=== PATIENT | male | born 1960 | race Caucasian/White ===

== ENCOUNTER 2019-01-14 05:13 | Emergency (ER) | payer BC, OTHER ==
[2019-01-14 05:23] VITALS: BP 228/162
[2019-01-14] MEDS ORDERED: HYDROmorphone 1 MG/ML Syringe IVPUSH ONE ×2 (05:32→06:22)
[2019-01-14] MEDS ORDERED: Sodium Chloride 0.9% 10 ML Syringe FLUSH PRN (05:32)
[2019-01-14] MEDS ORDERED: Ondansetron 4 MG/2 ML SDV IVPUSH ONE (05:32)
--- NOTE | 2019-01-14 05:44 | EDM.PDOC ---
ED HPI GENERAL MEDICAL PROBLEM - General Chief Complaint: Abdominal Pain Stated Complaint: PAIN IN BACK AND STOMACH Time Seen by Provider: 01/14/19 05:28 Source of Information: Reports: Patient, RN Notes Reviewed - History of Present Illness INITIAL COMMENTS - FREE TEXT/NARRATIVE: 58-year-old male comes in with left flank and back discomfort radiating to left groin. He states this started about 4 hours ago awakening him out of a " sleep". Pain is sharp, severe, unrelenting with some nausea vomiting as well. Pain does not radiate to the right abdomen. He's not had anything like this before. He was feeling fine last evening. Left Abdomen Pain Score (Numeric/FACES): 10 - Related Data Allergies Allergy/AdvReac Type Severity Reaction Status Date / Time No Known Allergies Allergy Verified 01/14/19 05:32 Home Meds: Home Meds oxyCODONE HCl/Acetaminophen [Percocet 5-325 mg Tablet] 1 each PO Q6HR PRN #14 tablet 01/14/19 [Rx] Past Medical History Cardiovascular History: Reports: Hypertension - Past Surgical History Male Surgical History: Reports: Other (See Below) Social & Family History - Caffeine Use Caffeine Use: Reports: Coffee, Soda ED ROS GENERAL - Review of Systems Review Of Systems: See Below Constitutional: Reports: Diaphoresis. Denies: Fever, Chills HEENT: Reports: No Symptoms Respiratory: Denies: Shortness of Breath Cardiovascular: Denies: Chest Pain GI/Abdominal: Reports: Abdominal Pain, Nausea, Vomiting : Denies: Hematuria Musculoskeletal: Reports: Back Pain Skin: Reports: No Symptoms Neurological: Denies: Numbness, Tingling ED EXAM, RENAL/ - Physical Exam Exam: See Below General Appearance: Alert, Anxious, Severe Distress Eye Exam: Bilateral Eye: PERRL Throat/Mouth: Normal Inspection, Normal Oropharynx Head: Atraumatic Neck: Supple Respiratory/Chest: No Respiratory Distress, Lungs Clear, Normal Breath Sounds Cardiovascular: Regular Rate, Rhythm GI/Abdominal: Tender (mild tenderness LLQ) Back Exam: CVA Tenderness (L) Extremities: Normal Inspection. No: Pedal Edema, Leg Pain Neurological: Alert, Oriented, No Motor/Sensory Deficits Skin Exam: Warm, Dry, Normal Color Course - Vital Signs Last Recorded V/S: Last Vital Signs Temp 97.5 F 01/14/19 05:20 Pulse 78 01/14/19 05:20 Resp 18 01/14/19 05:20 BP 228/162 H 01/14/19 05:20 Pulse Ox 99 01/14/19 05:20 - Orders/Labs/Meds Orders: Active Orders 24 hr Category Date Time Status Peripheral IV Care [RC] . DIRECTED Care 01/14/19 05:32 Active Sodium Chloride 0.9% [Saline Flush] Med 01/14/19 05:32 Active 10 ml FLUSH ASDIRECTED PRN Peripheral IV Insertion Adult [OM.PC] Stat Oth 01/14/19 05:31 Ordered Medication Orders Sodium Chloride (Saline Flush) 10 ml FLUSH ASDIRECTED PRN PRN Reason: Keep Vein Open Last Admin: 01/14/19 05:39 Dose: 10 ml Labs: Laboratory Tests 01/14/19 01/14/19 01/14/19 Range/Units 05:31 05:31 05:57 WBC 15.01 H (4.23-9.07) K/mm3 RBC 6.06 (4.63-6.08) M/mm3 Hgb 16.9 (13.7-17.5) gm/L Hct 49.4 (40.1-51.0) % MCV 81.5 (79.0-92.2) fl MCH 27.9 (25.7-32.2) pg MCHC 34.2 (32.2-35.5) g/dl RDW Std Deviation 39.8 (35.1-43.9) fL Plt Count 323 (163-337) K/mm3 MPV 9.6 (9.4-12.3) fl Neut % (Auto) 81.4 H (34.0-67.9) % Lymph % (Auto) 12.4 L (21.8-53.1) % [place] % (Auto) 5.3 (5.3-12.2) % Eos % (Auto) 0.3 L (0.8-7.0) Baso % (Auto) 0.1 (0.1-1.2) % Neut # (Auto) 12.21 H (1.78-5.38) K/mm3 Lymph # (Auto) 1.86 (1.32-3.57) K/mm3 [place] # (Auto) 0.79 (0.30-0.82) K/mm3 Eos # (Auto) 0.05 (0.04-0.54) K/mm3 Baso # (Auto) 0.02 (0.01-0.08) K/mm3 Manual Slide Review Normal smear Sodium 141 (136-145) mEq/L Potassium 3.8 (3.5-5.1) mEq/L Chloride 103 (98-107) mEq/L Carbon Dioxide 28 (21-32) mEq/L Anion Gap 13.8 (5-15) BUN 11 (7-18) mg/dL Creatinine 1.2 (0.7-1.3) mg/dL Est Cr Clr Drug Dosing 67.92 mL/min Estimated GFR (MDRD) > 60 (>60) mL/min BUN/Creatinine Ratio 9.2 L (14-18) Glucose 149 H (74-106) mg/dL Calcium 10.2 H (8.5-10.1) mg/dL Total Bilirubin 0.8 (0.2-1.0) mg/dL AST 25 (15-37) U/L ALT 44 (16-63) U/L Alkaline Phosphatase 69 (46-116) U/L Total Protein 8.0 (6.4-8.2) g/dl Albumin 4.2 (3.4-5.0) g/dl Globulin 3.8 gm/dL Albumin/Globulin Ratio 1.1 (1-2) Urine Color Yellow (Yellow) Urine Appearance Clear (Clear) Urine pH 7.5 (5.0-8.0) Ur Specific [place] 1.025 (1.005-1.030) Urine Protein Trace H (Negative) Urine Glucose (UA) Negative (Negative) Urine Ketones Negative (Negative) Urine Occult Blood 3+ H (Negative) Urine Nitrite Negative (Negative) Urine Bilirubin Negative (Negative) Urine Urobilinogen 0.2 (0.2-1.0) Ur Leukocyte Esterase Negative (Negative) Meds: Medications Generic Name Dose Route Start Last Admin Trade Name Freq PRN Reason Stop Dose Admin Sodium Chloride 10 ml 01/14/19 05:32 01/14/19 05:39 Saline Flush FLUSH 10 ml ASDIRECTED PRN Administration Keep Vein Open Discontinued Medications Generic Name Dose Route Start Last Admin Trade Name Freq PRN Reason Stop Dose Admin Hydromorphone HCl 1 mg 01/14/19 05:32 01/14/19 05:38 Dilaudid IVPUSH 01/14/19 05:33 1 mg ONETIME ONE Administration Hydromorphone HCl 1 mg 01/14/19 06:22 01/14/19 06:38 Dilaudid IVPUSH 01/14/19 06:23 1 mg ONETIME ONE Administration Labetalol HCl 20 mg 01/14/19 06:11 01/14/19 06:23 Normodyne IVPUSH 01/14/19 06:12 4 ml ONETIME ONE Administration Protocol Ondansetron HCl 4 mg 01/14/19 05:32 01/14/19 05:37 Zofran IVPUSH 01/14/19 05:33 4 mg ONETIME ONE Administration Tamsulosin HCl 0.4 mg 01/14/19 06:23 01/14/19 06:38 Flomax PO 01/14/19 06:24 0.4 mg ONETIME ONE Administration - Re-Assessments/Exams Free Text/Narrative Re-Assessment/Exam: 01/14/19 06:08 CT abdomen pelvis without contrast does show a 4 mm stone distal left ureter with hydronephrosis and perinephric stranding. See radiology report for details. Given 1 mg Dilaudid IV, Zofran IV. Blood pressure was tremendously high on arrival. He has been on blood pressure medicine in the past but states "I have not seen a doctor in 2 years" so obviously off meds at this time. 01/14/19 06:10. White blood count mildly elevated, chemistries are fine, BUN and creatinine are okay. 06:50. Have given 1 dose labetalol 20 mg IV and with that blood pressure has improved to 180/123. He states his blood pressure "always does run high" and he has been off meds for quite a long time. His pain is much better after 1.5 mg Dilaudid IV. He states he is "ready to go home". We also have given a dose of Flomax. Departure - Departure Time of Disposition: 06:56 Disposition: Home, Self-Care 01 Condition: Fair Clinical Impression: Kidney stone on left side, Renal colic on left side Hypertension Qualifiers: Hypertension type: essential hypertension Qualified Code(s): I10 - Essential ( primary) hypertension - Discharge Information Prescriptions: oxyCODONE HCl/Acetaminophen [Percocet 5-325 mg Tablet] 1 each PO Q6HR PRN #14 tablet PRN Reason: Pain Referrals: PCP,None [Primary Care Provider] - Forms: ED Department Discharge Additional Instructions: Strain urine to watch for stone, you've been given sedative medication while here in the ED, do not drive or operate equipment of any kind today. Drink plenty of water to maintain hydration. You may take Percocet every 6-8 hours if needed for further severe discomfort. See one of our clinic providers if you have not past the stone by tomorrow noon, call [phone] for appointment. They will help get you referred to see a Urologist. Your blood pressure is very high. You should be working with a clinic provider to have that monitored and treated. - My Orders Last 24 Hours: My Active Orders 01/14/19 05:31 Peripheral IV Insertion Adult [OM.PC] Stat 01/14/19 05:32 Peripheral IV Care [RC] . DIRECTED Sodium Chloride 0.9% [Saline Flush] 10 ml FLUSH ASDIRECTED PRN - Assessment/Plan Last 24 Hours: My Active Orders 01/14/19 05:31 Peripheral IV Insertion Adult [OM.PC] Stat 01/14/19 05:32 Peripheral IV Care [RC] . DIRECTED Sodium Chloride 0.9% [Saline Flush] 10 ml FLUSH ASDIRECTED PRN
[2019-01-14] MEDS ORDERED: Labetalol 100 MG/20 ML MDV IVPUSH ONE (06:11)
[2019-01-14] MEDS ORDERED: Tamsulosin 0.4 MG Cap.ER PO ONE (06:23)
--- NOTE | 2019-01-14 06:44 | CT ---
CT abdomen and pelvis Technique: Multiple axial sections were obtained from above the dome of the diaphragm inferiorly through the pubic symphysis. Intravenous and oral contrast not utilized. Study has been performed as a ureteral stone protocol. Comparison: No prior abdominal imaging is available. Findings: Left ureter is dilated. This finding is caused by an obstructing stone within the distal left ureter measuring approximately 3.9 mm. This occurs approximately 4 cm from the UVJ. No other abnormal calcifications are seen along the course of the ureters. Kidneys show no abnormal calcifications. Visualized lung bases show nothing acute. Visualized portions of the liver show mild fatty infiltration. No focal abnormality is appreciated within the liver. Spleen appears within normal limits. Adrenal glands show no nodule. Pancreas is within normal limits. Gallbladder contains no calcified gallstones. Aorta shows no aneurysm. Mild atherosclerotic calcification noted within the iliac arteries. No retroperitoneal adenopathy or mesenteric abnormalities are identified. No pelvic mass or adenopathy is seen. No free fluid is identified. Appendix is seen which is normal in size. Incidental diverticuli seen within the descending and sigmoid regions. Bone window settings were reviewed which show no acute abnormality. Impression: 1. 3.9 mm obstructing left ureteral stone located approximately 4 cm proximal to the UVJ. This causes proximal hydroureter. 2. No other acute abnormality is appreciated. Other incidental notes. Diagnostic code #3 I agree with preliminary report from [facility], finalized on 01/14/19, 7:04 AM Central Time
== END 2019-01-14 07:25 | disposition home or self-care (01) ==
LOC: JD.ED 05:13
DX: N13.2 Hydronephrosis with renal and ureteral calculous obstruction (principal); I10 Essential (primary) hypertension
CPT/HCPCS: 36415; 74176; 80053; 81003; 85025; 96374; 96375; 96376; 99284; A9270; J1170; J2405; J3490